=== PATIENT | male | born 1955 | race Caucasian/White ===

== ENCOUNTER 2019-01-22 00:11 | Emergency (ER) | payer MEDICARE ==
[~2019-01-22] VITALS: Ht 193 cm; Wt 77.1 kg
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
--- NOTE | 2019-01-22 01:05 | NUR ---
XRAY IN PROGRESS AT THE BEDSIDE.
--- NOTE | 2019-01-22 01:22 | NUR ---
PT AMBULATED TO THE BATHROOM WITH A STEADY GAIT.
--- NOTE | 2019-01-22 01:58 | NUR ---
Steady gait, ambulatory. Patient discharged to home in stable condition. Written and verbal after care instructions given. Patient verbalizes understanding of instruction.
[2019-01-22 02:26] VITALS: BP 133/67
== END 2019-01-22 02:27 | disposition home or self-care (01) ==
LOC: ER 00:17
DX: S70.02XA Contusion of left hip, initial encounter (principal); S60.222A Contusion of left hand, initial encounter; F32.9 Major depressive disorder, single episode, unspecified; Z98.890 Other specified postprocedural states; W18.39XA Other fall on same level, initial encounter; Y93.89 Activity, other specified; Y92.89 Other specified places as the place of occurrence of the external cause; Y99.8 Other external cause status
CPT/HCPCS: 73130; 73503; 99283; J7030; 73502